=== PATIENT | female | born 1975 | race African-American/Black ===

== ENCOUNTER 2017-12-13 07:34 | Emergency (ER) | payer SELFPAY ==
[~2017-12-13] VITALS: Ht 165.1 cm; Wt 54.4 kg
--- NOTE | 2017-12-13 07:34 | NUR ---
PT BROUGHT IN BY CO-WORKERS FOR S/P SYNCOPAL EPISODE WHILE AT WORK. PT WAS SITTING IN A CHAIR IN THE NURSES' STATION AND PASSED OUT ACCDG TO HER CO- WORKER. PT APPEARS VERY DIAPHORETIC WHEN SHE ARRIVED. PT WAS ASSISTED FROM WHEELCHAIR TO [employer]EN WEAVER. PT IS A/OX4. PT STS THAT SHE HAS HISTORY OF SAME SINCE SHE WAS 16Y/O. SHE WAS SEEN BY DOCTORS FOR THIS BUT SHE SAID "THEY NEVER FIGURED OUT WHAT'S GOING ON." VSS NAD RR EVEN AND UNLABORED. PENDING ER MD EVALUATION
[2017-12-13] MEDS ORDERED: IV NS 0.9% 1,000 ML BAG IV ONE (08:00)
[2017-12-13 08:01] LABS: BASOPHILS % (AUTO) 0.6 % (0.0-2.0); EOSINOPHILS % (AUTO) 0.3 % (0.0-6.0); HEMATOCRIT 27 % (33-45); LYMPHOCYTES # (AUTO) 2.6 /CMM (0.8-4.8); LYMPHOCYTES % (AUTO) 36.7 % (20.0-44.0); MEAN CORPUSCULAR HGB CONC 30 g/dl (31.0-36.0); MEAN CORPUSCULAR VOLUME 72 fL (82-100); MONOCYTES # (AUTO) 0.4 /CMM (0.1-1.30); NEUTROPHILS # (AUTO) 4.1 /CMM (1.8-8.9); NEUTROPHILS % (AUTO) 57.4 % (43.0-81.0); PLATELET COUNT (AUTO) 325 /CMM (150-450); RDW COEFFICIENT OF VARIATION 17.8 (11.5-15.0); WHITE BLOOD COUNT (AUTO) 7.2 K/uL (4.3-11.0)
[2017-12-13 08:17] LABS: INR 0.99 (0.87-1.13)
[2017-12-13 08:22] LABS: CALCIUM, SERUM 8.7 mg/dL (8.5-10.1); CREATININE 0.9 mg/dL (0.6-1.3); POTASSIUM 3.1 mmol/L (3.5-5.1)
[2017-12-13] MEDS ORDERED: POTASSIUM CHLORIDE 20 MEQ TAB.PRT.SR PO ONE ×2 (08:30→08:35)
--- NOTE | 2017-12-13 08:35 | NUR ---
Patient is resting comfortably in bed with eyes closed. Easily aroused.
--- NOTE | 2017-12-13 09:42 | NUR ---
Patient discharged to home in stable condition. Written and verbal after care instructions given. Patient verbalizes understanding of instruction. IV removed. Catheter intact and site benign. Pressure and 4x4 applied to site. No bleeding noted.
[2017-12-13 09:43] VITALS: BP 118/57
== END 2017-12-13 09:45 | disposition home or self-care (01) ==
LOC: ER 07:36
DX: R55 Syncope and collapse (principal); N92.0 Excessive and frequent menstruation with regular cycle; D64.9 Anemia, unspecified
CPT/HCPCS: 36415; 80048; 82962; 84703; 85025; 85730; 93005; 96360; 99285; A4606; J7030; Z7610